=== PATIENT | female | born 1985 | race Caucasian/White ===

== ENCOUNTER 2024-11-20 11:45 | Emergency (ER) | payer OTHER ==
[2024-11-20 11:51] VITALS: BP 113/63; PULSE 88; RESP 18; TEMP 98.1; BMI 26.9
[2024-11-20] MEDS ORDERED: LIDOCAINE HCL 1%, 10 MG/ML (20ML VIAL) ONE (12:11)
[2024-11-20] MEDS ORDERED: CEPHALEXIN MONOHYDRATE 500 MG CAPSULE (UD) ONE (12:36)
[2024-11-20] MEDS: LIDOCAINE HCL 1%, 10 MG/ML (50 mL VIAL) INF ONE (12:39)
[2024-11-20] MEDS: CEPHALEXIN MONOHYDRATE 500 MG CAPSULE (UD) PO ONE (12:39)
== END 2024-11-20 13:02 | disposition home or self-care (01) ==
LOC: JER 11:45 → JERFT 11:45
PROC: 0H9LXZZ Drainage of Left Lower Leg Skin, External Approach (ICD-10-PCS; principal; 2024-11-20)
DX: L03.116 Cellulitis of left lower limb (principal); M79.652 Pain in left thigh
CPT/HCPCS: 99283-25